=== PATIENT | female | born 1995 | race Caucasian/White ===

== ENCOUNTER 2017-02-01 12:55 | Emergency (ER) | payer OTHER ==
[2017-02-01 14:59] LABS: Hematocrit 36 % (35-47); Hemoglobin 11.9 g/dl (12.0-16.0); Mean Corpuscular HGB Conc 33 g/dl (31-36); Mean Corpuscular Hemoglobin 29 pg (27-31); Mean Corpuscular Volume 89 fL (80-97); Mean Platelet Volume 9 um3 (7.4-10.4); Red Blood Count 4.09 10^6/ul (4.0-5.4); Red Cell Distribution Width 13 % (10.5-15); White Blood Count 5.5 10^3/ul (3.5-10.8)
[2017-02-01 15:05] LABS: Urine Bacteria Absent (Absent); Urine Bilirubin Negative (Negative); Urine Glucose Negative (Negative); Urine Nitrite Negative (Negative)
[2017-02-01 15:10] LABS: Albumin 4.3 g/dL (3.2-5.2); BUN/Creatinine Ratio 20.8 (8-20); C Reactive Protein 19.12 mg/L (< 5.00); Calcium 9.5 mg/dL (8.6-10.3); EGFR African American 185.5 (>60); EGFR Non-African American 144.2 (>60); Globulin 2.8 g/dL (2-4); Potassium 3.6 mmol/L (3.5-5.0); Total Bilirubin 0.4 mg/dL (0.2-1.0); Total Protein 7.1 g/dL (6.4-8.9)
--- NOTE | 2017-02-01 16:23 | RAD ---
HISTORY: History of endometrioma, right ovarian cyst COMPARISONS: None TECHNIQUE: Multiple transverse and longitudinal ultrasound images were obtained of the pelvis using grayscale, color Doppler, and spectral Doppler imaging using the transabdominal transducer. FINDINGS: UTERUS: The uterus measures 7.1 x 2.7 x 4.9 cm. The uterus is normal in shape, size, contour, and echotexture. ENDOMETRIUM: The endometrial stripe is smooth. The endometrium measures 0.4 cm in thickness. CUL-DE-SAC: There is no free fluid within the cul-de-sac. RIGHT OVARY: The right ovary measures 4.1 x 2.8 x 3.3 cm. There is a homogeneously hypoechoic cystic lesion of the right ovary measuring 2.8 x 2.5 x 2.3 Normal arterial and venous waveforms are identifiable within the ovary on spectral Doppler imaging. LEFT OVARY: The left ovary measures 4.5 x 3.9 x 5.3 cm. There is a hypoechoic cystic lesion of left ovary measuring 3.6 x 5 x 3.3 Normal arterial and venous waveforms are identifiable within the ovary on spectral Doppler imaging. BLADDER: The visualized bladder is unremarkable. IMPRESSION: 1. BILATERAL CYSTIC LESIONS OF THE OVARIES. WHILE THE DIFFERENTIAL INCLUDES HEMORRHAGIC CYST, GIVEN THE HISTORY OF ENDOMETRIOSIS, THESE LIKELY REPRESENT BILATERAL ENDOMETRIOMAS. 2. NO SONOGRAPHIC FEATURES OF TORSION. PLEASE NOTE THAT PARTIAL OR INTERMITTENT TORSION MAY BE SONOGRAPHICALLY NORMAL..
[2017-02-01 17:09] VITALS: BP 110/69
--- NOTE | 2017-02-01 17:09 | ED ---
Damien Melgar Rebecca, scribed for Chanda Tineo MD on 02/01/17 at 1324 . Abdominal Pain/Female - HPI Summary HPI Summary: Pt is a 21 y/o F who presents to ED c/o epigastric abdominal pain. Pain began suddenly yesterday and has been intermittent since onset. Pain was worse yesterday, currently being ranked as 2/10 and characterized as dull. Pt reports she began oral contraceptives 3 months ago and that whenever she is on the placebo pill, the abdominal pain will present. Also mentions acute on chronic suprapubic abdominal cramps, typically present during her menstrual cycle but worse this month, which are alleviated by Tylenol. Sx aggravated by nothing. Denies any fever. Denies any recent increase in stress and changes in eating habits. LNMP is right now. A0. Pt was evaluated by [facility] who referred her to [facility]. PMHx endometriosis and PCOS. Currently has an endometrioma on the L overy and a cyst on the R ovary. - History of Current Complaint Chief Complaint: EDAbdPain Stated Complaint: ABD PAIN Time Seen by Provider: 02/01/17 13:23 Hx Obtained From: Patient Onset/Duration: Sudden Onset, Still Present Timing: Intermittent Episode Lasting Severity Initially: Moderate Severity Currently: Mild Pain Intensity: 2 Pain Scale Used: 0-10 Numeric Location: Epigastric - dull pain, Suprapubic - cramping Character: Dull, Cramping Aggravating Factor(s): Nothing Alleviating Factor(s): Medications - Tylenol alleviates cramping Associated Signs and Symptoms: Positive: Negative. Negative: Fever Allergies/Adverse Reactions: Allergies Allergy/AdvReac Type Severity Reaction Status Date / Time No Known Allergies Allergy Verified 02/01/17 13:01 PMH/Surg Hx/FS Hx/Imm Hx Endocrine/Hematology History: Denies: Hx Diabetes Cardiovascular History: Denies: Hx Hypertension History: Reports: Other Problems/Disorders - PCOS, endometriosis Infectious Disease History: No Infectious Disease History: Denies: Traveled Outside the [place] in Last 30 Days - Family History Known Family History: Positive: Other - No FHx immune disorders Negative: Hypertension - Social History Occupation: Student Alcohol Use: None Hx Substance Use: No Substance Use Type: Reports: None Hx Tobacco Use: No Smoking Status (MU): Never Smoked Tobacco Review of Systems Negative: Fever Positive: Abdominal Pain - dull epigastric pain, suprapubic cramping All Other Systems Reviewed And Are Negative: Yes Physical Exam - Summary Physical Exam Summary: General: Well appearing, no pain distress Skin: Warm, Skin Color Reflects Adequate Perfusion, Dry Eyes: EOMI, TYSHAWN ENT: Pharynx normal, TMs normal Neck: Supple, nontender Respiratory: CTA, breath sounds present, no rhonchi, no wheezes, no rales Cardiovascular: RRR, no murmur, no rub, no gallop Abdomen: Soft, Non-distended, no guarding, no rebound. Bilateral suprapubic and epigsatric pain. Bowel: Present Musculoskeletal: JENNIFER, No edema Neuro: Sensory/motor intact, A&Ox3, CN intact 2-12 Psych: Affect/mood appropriate Triage Information Reviewed: Yes Vital Signs On Initial Exam: Initial Vitals Temp Pulse Resp BP Pulse Ox 98.6 F 91 18 123/60 97 02/01/17 12:57 02/01/17 12:57 02/01/17 12:57 02/01/17 12:57 02/01/17 12:57 Vital Signs Reviewed: Yes Diagnostics - Vital Signs Vital Signs Temp Pulse Resp BP Pulse Ox 02/01/17 12:57 98.6 F 91 18 123/60 97 - Laboratory Lab Results: Lab Results 02/01/17 02/01/17 02/01/17 Range/Units 13:15 14:40 14:40 WBC 5.5 (3.5-10.8) 10^3/ul RBC 4.09 (4.0-5.4) 10^6/ul Hgb 11.9 L (12.0-16.0) g/dl Hct 36 (35-47) % MCV 89 (80-97) fL MCH 29 (27-31) pg MCHC 33 (31-36) g/dl RDW 13 (10.5-15) % Plt Count 222 (150-450) 10^3/ul MPV 9 (7.4-10.4) um3 Neut % (Auto) 59.4 (38-83) % Lymph % (Auto) 30.2 (25-47) % [place] % (Auto) 9.0 (1-9) % Eos % (Auto) 0.9 (0-6) % Baso % (Auto) 0.5 (0-2) % Absolute Neuts (auto) 3.3 (1.5-7.7) 10^3/ul Absolute Lymphs (auto) 1.7 (1.0-4.8) 10^3/ul Absolute Monos (auto) 0.5 (0-0.8) 10^3/ul Absolute Eos (auto) 0 (0-0.6) 10^3/ul Absolute Basos (auto) 0 (0-0.2) 10^3/ul Absolute Nucleated RBC 0 10^3/ul Nucleated RBC % 0 Sodium 138 (133-145) mmol/L Potassium 3.6 (3.5-5.0) mmol/L Chloride 105 (101-111) mmol/L Carbon Dioxide 27 (22-32) mmol/L Anion Gap 6 (2-11) mmol/L BUN 11 (6-24) mg/dL Creatinine 0.53 (0.51-0.95) mg/dL Est GFR ( Amer) 185.5 (>60) Est GFR (Non-Af Amer) 144.2 (>60) BUN/Creatinine Ratio 20.8 H (8-20) Glucose 84 (70-100) mg/dL Calcium 9.5 (8.6-10.3) mg/dL Total Bilirubin 0.40 (0.2-1.0) mg/dL AST 13 (13-39) U/L ALT 10 (7-52) U/L Alkaline Phosphatase 47 (34-104) U/L C-Reactive Protein 19.12 H (< 5.00) mg/L Total Protein 7.1 (6.4-8.9) g/dL Albumin 4.3 (3.2-5.2) g/dL Globulin 2.8 (2-4) g/dL Albumin/Globulin Ratio 1.5 (1-3) Amylase 41 (29-103) U/L Lipase 23 (11.0-82.0) U/L Urine Color Yellow Urine Appearance Clear Urine pH 6.0 (5-9) Ur Specific [place] 1.020 (1.010-1.030) Urine Protein Negative (Negative) Urine Ketones Negative (Negative) Urine Blood 3+ H (Negative) Urine Nitrate Negative (Negative) Urine Bilirubin Negative (Negative) Urine Urobilinogen Negative (Negative) Ur Leukocyte Esterase Negative (Negative) Urine WBC (Auto) Trace(0-5/hpf) (Absent) Urine RBC (Auto) 3+(>10/hpf) H (Absent) Ur Squamous Epith Cells Present H (Absent) Urine Bacteria Absent (Absent) Urine Glucose Negative (Negative) Result Diagrams: 02/01/17 14:40 02/01/17 14:40 Lab Statement: Any lab studies that have been ordered have been reviewed, and results considered in the medical decision making process. - Ultrasound No standard instances Ultrasound Interpretation Completed By: Radiologist - Pelvic US: 1. BILATERAL CYSTIC LESIONS OF THE OVARIES. WHILE THE DIFFERENTIAL INCLUDES HEMORRHAGIC CYST , GIVEN THE HISTORY OF ENDOMETRIOSIS, THESE LIKELY REPRESENT BILATERAL ENDOMETRIOMAS. 2. NO SONOGRAPHIC FEATURES OF TORSION. PLEASE NOTE THAT PARTIAL OR INTERMITTENT TORSION MAY BE SONOGRAPHICALLY NORMAL.. Re-Evaluation - Re-Evaluation First Eval Re-Evaluation Time: 15:44 Change: Unchanged Comment: Pt is doing fine. Waiting for US. Explained that her labs look well. Second Eval Re-Evaluation Time: 16:55 Change: Improved Comment: Pt is doing well. Discussed US results with the pt and their family. Mother requested a CD of results. Abdominal Pain Fem Course/Dx - Course Course Of Treatment: Patient medications reviewed this visit. 21 yo female with known endometriosis on new ocp for 3 mos noting epigastric pain during her placebo pills, which she thought was related to the iron in the pills. She also notes that her cramping is worse in her pelvic region, but it is normally bad during her period. On exam she primarily has mild epigastric pain, her exam was benign and labs were negative, pt didn't was an vaginal ultrasound and so a trans abdominal one was done, confirming that she does have ovarian cyst/ endometriomas bilaterally. Pt only wants to take tylenol for discomfort and is agreeable to a script for gastritis meds. Pt is leaving [facility] as she is graduating [place] this weekend - Diagnoses Provider Diagnoses: Endometriosis, Gastritis Discharge - Discharge Plan Condition: Stable Disposition: HOME Prescriptions: Esomeprazole Magnesium [Nexium] 40 mg PO DAILY #14 gra Patient Education Materials: Endometriosis (ED), Gastritis (ED) Referrals: Non Staff,Doctor [Primary Care Provider] - 3 Days The documentation as recorded by the Damien bright Rebecca accurately reflects the service I personally performed and the decisions made by me, Chanda Tineo MD.
== END 2017-02-01 17:25 | disposition home or self-care (01) ==
LOC: ED 12:55
DX: N80.9 Endometriosis, unspecified (principal); K29.70 Gastritis, unspecified, without bleeding; R10.13 Epigastric pain
CPT/HCPCS: 36415; 76856; 80053; 81003; 81015; 82150; 83690; 85025; 86140; 99282